=== PATIENT | male | born 2000 | race African-American/Black ===

== ENCOUNTER 2025-01-08 12:27 | Inpatient (IN) | payer OTHER ==
[~2025-01-08] VITALS: Ht 182.9 cm; Wt 73.7 kg
[2025-01-08] MEDS ORDERED: NALOXONE HCL 1 MG/ML 2 ML SYRINGE ONE (12:34)
[2025-01-08] MEDS ORDERED: ETOMIDATE 2 MG/ML 10 ML VIAL ONE (12:37)
[2025-01-08] MEDS ORDERED: ROCURONIUM BROMIDE 10 MG/ML 5 ML VIAL ONE (12:38)
[2025-01-08 12:45] VITALS: PULSE 45; RESP 20; O2SAT 100; O2SAT 99
[2025-01-08] MEDS: SODIUM CHLORIDE 0.9% 1,000 ML IV ONE ×2 (13:11→16:15)
[2025-01-08 13:21] LABS: PLATELET COUNT (AUTO) 170 K/uL (150-450); RED BLOOD CELL COUNT(AUTO) 3.59 MIL/uL (4.50-5.90); RED CELL DISTRIBUTION WIDTH 13.0 % (11.5-14.5); WHITE BLOOD COUNT (AUTO) 8.1 K/uL (4.5-11.0)
[2025-01-08 13:33] LABS: CALCIUM, TOTAL 7.7 mg/dL (8.8-10.5); CREATININE 0.83 mg/dL (0.60-1.30); GLOMERULAR FILTR. RATE CALC > 60 mL/min (>60); GLUCOSE,RANDOM 111 mg/dL (70-110); SODIUM SERUM 143 mmol/L (136-145); UREA NITROGEN, BLOOD 13 mg/dL (7-18)
[2025-01-08 13:38] LABS: TROPONIN I-HIGH SENSITIVITY 7 ng/L (<76)
[2025-01-08 13:41] LABS: APPEARANCE,URINE CLEAR (CLEAR); GLUCOSE, URINE (UA) NEGATIVE (NEGATIVE); LEUKOCYTE ESTERASE ,URINE NEGATIVE (NEGATIVE); NITRATE,URINE NEGATIVE (NEGATIVE); OCCULT BLOOD,URINE SMALL (NEGATIVE); PH,URINE DRUG SCREEN 5.5 (5.0-8.0); SPECIFIC GRAVITIY, URINE 1.030 (1.003-1.030)
[2025-01-08] MEDS: PROPOFOL 1000 MG/ISO-OSM 100 ML IV PRN (13:45)
[2025-01-08 13:46] LABS: ALCOHOL, URINE DRUG SCREEN NEGATIVE (NEGATIVE); AMPHET/METH SCREEN,URINE NEGATIVE (NEGATIVE); BARBITURATE SCREEN, URINE NEGATIVE (NEGATIVE); CANNABINOID SCREEN,URINE NEGATIVE (NEGATIVE); COCAINE SCREEN,URINE NEGATIVE (NEGATIVE); METHADONE SCREEN, URINE NEGATIVE (NEGATIVE)
[2025-01-08 13:50] LABS: ABG BASE EXCESS -4.6 mmol/L (-2.0-3.0); ABG CARBOXYHEMOGLOBIN 0.5 % (0.5-1.5); ABG HCO3 20.8 mmol/L (21.0-28.0); ABG METHEMOGLOBIN 1.0 % (0.0-1.5); ABG OXYGEN CONTENT 19.9 mL/dL (15.0-23.0); ABG OXYGEN SATURATION 99.0 % (94.0-98.0); ABG OXYHEMOGLOBIN 97.5 % (94.0-98.0); ABG PCO2 41 mmHg (32.0-48.0); ABG PH 7.334 (7.350-7.450); ABG TOTAL HEMOGLOBIN 13.3 G/dL (13.5-17.5); FRACTIONATED INSPIRED OXYGEN 100.0 % (21-100.0); SOURCE, BLOOD GAS ARTERIAL; TEMPERATURE, FAHRENHEIT, BG 95.6 FAHREN (96.0-98.6)
[2025-01-08 13:51] LABS: ABG A-A DIFF O2 91.8 mmHg (10-20.0); ALLEN TEST, BLOOD GAS Positive; O2 DEVICE,BLOOD GAS VENTILATOR (ROOM AIR); PATIENT RATE, BG 20.0 min.; PEEP,BG 5 cm H2O; PO2, ARTERIAL BG 584.6 mmHg (83.0-108.0); SET RATE, BG 20.0 min.; SITE, BLOOD GAS RT RADIAL; SPONTANEOUS VT, BG 433 ml; VT, ABG 400 ml
[2025-01-08 13:54] LABS: PHOSPHORUS 1.8 mg/dL (2.5-4.9)
[2025-01-08 13:57] LABS: RBC MORPHOLOGY COMMENT ABNORMAL RBC MORPH
[2025-01-08 13:58] LABS: LACTIC ACID 1.0 mmol/L (0.4-2.0)
[2025-01-08 14:06] LABS: ASPARTATE AMINOTRANSFERASE 64 U/L (15-37); TOTAL PROTEIN, SERUM 5.9 g/dL (6.4-8.2)
[2025-01-08 14:08] LABS: CREATINE KINASE, TOTAL ONLY 3280 U/L (39-308)
[2025-01-08 15:20] VITALS: PULSE 41; RESP 23; O2SAT 100
[2025-01-08] MEDS ORDERED: MAGNESIUM SULFATE 2 GM/WATER 50 ML IV PRN (15:45)
[2025-01-08] MEDS ORDERED: MAGNESIUM SULFATE 4 GM/WATER 100 ML IV PRN (15:45)
[2025-01-08] MEDS ORDERED: MAGNESIUM OXIDE 400 MG TABLET PO PRN (15:45)
[2025-01-08] MEDS ORDERED: BISACODYL 10 MG RECTAL RECTAL SUPPOSITORY PR PRN (15:45)
[2025-01-08] MEDS ORDERED: ONDANSETRON HCL 4 MG/2 ML VIAL IVP PRN (15:45)
[2025-01-08] MEDS: FentaNYL CIT 1000MCG/0.9% NACL 100 ML IV PRN (16:11)
[2025-01-08] MEDS: POTASSIUM PHOS,M-BASIC-D-BASIC 10 MEQ in DEXTROSE 5%-WATER 50 ML IV ONE (16:12)
[2025-01-08] MEDS: 1: MAGNESIUM SULFATE 2 GM, MVI, ADULT NO.1 WITH VIT K 10 ML, THIAMINE 100 MG, FOLIC ACID IV SCH (16:12)
[2025-01-08] MEDS: HEPARIN SODIUM,PORCINE 5,000 UNITS/ML VIAL SQ SCH (16:22)
[2025-01-08 16:55] LABS: COVID AG,FIA SOURCE NASAL SWAB
[2025-01-08] MEDS: MIDAZOLAM HCL 100 MG in SODIUM CHLORIDE 0.9% 180 ML IV PRN (16:55)
[2025-01-08 17:16] LABS: SARS-COV2 (COVID) ANTIGEN,FIA Negative (Negative)
[2025-01-08 19:15] VITALS: PULSE 63; RESP 18; RESP 20; O2SAT 97
[2025-01-08 21:30] VITALS: BP 104/62; PULSE 59; RESP 18; RESP 21; TEMP 95.3; O2SAT 98
[2025-01-08] MEDS: CHLORHEXIDINE GLUCONATE 2% TOWELETTE [2'S/6'S] TP SCH (21:38)
[2025-01-08 22:40] VITALS: PULSE 56; RESP 20; O2SAT 100
[2025-01-09] VITALS (12 sets, daily range): BP systolic 85–139; BP diastolic 44–74; PULSE 55–86; RESP 15–22; TEMP 95.4–100.5; O2SAT 97–100
[2025-01-09] MEDS ORDERED: PROPOFOL 1000 MG/ISO-OSM 100 ML ONE (02:37)
[2025-01-09] MEDS: PROPOFOL 1000 MG/ISO-OSM 100 ML IV PRN (02:39)
[2025-01-09 05:54] LABS: PLATELET COUNT (AUTO) 154 K/uL (150-450); RED BLOOD CELL COUNT(AUTO) 3.39 MIL/uL (4.50-5.90); RED CELL DISTRIBUTION WIDTH 13.1 % (11.5-14.5); WHITE BLOOD COUNT (AUTO) 6.9 K/uL (4.5-11.0)
[2025-01-09 06:04] LABS: CALCIUM, TOTAL 7.8 mg/dL (8.8-10.5); CREATININE 0.75 mg/dL (0.60-1.30); GLOMERULAR FILTR. RATE CALC > 60 mL/min (>60); GLUCOSE,RANDOM 78 mg/dL (70-110); SODIUM SERUM 141 mmol/L (136-145); UREA NITROGEN, BLOOD 7 mg/dL (7-18)
[2025-01-09] MEDS ORDERED: MIDAZOLAM HCL 100 MG in SODIUM CHLORIDE 0.9% 180 ML IV PRN (07:15)
[2025-01-09] MEDS: FentaNYL CIT 1000MCG/0.9% NACL 100 ML IV PRN (07:25)
[2025-01-09 08:52] LABS: RBC MORPHOLOGY COMMENT ABNORMAL RBC MORPH
[2025-01-09] MEDS: PANTOPRAZOLE SODIUM 40 MG/VIAL IVP SCH (08:53)
[2025-01-09] MEDS: ACETAMINOPHEN 325 MG TABLET PO PRN (12:09)
[2025-01-09 17:17] LABS: ABG A-A DIFF O2 80.2 mmHg (10-20.0); ABG BASE EXCESS -0.5 mmol/L (-2.0-3.0); ABG CARBOXYHEMOGLOBIN 0.6 % (0.5-1.5); ABG HCO3 24.0 mmol/L (21.0-28.0); ABG METHEMOGLOBIN 0.3 % (0.0-1.5); ABG OXYGEN CONTENT 18.7 mL/dL (15.0-23.0); ABG OXYGEN SATURATION 97.3 % (94.0-98.0); ABG OXYHEMOGLOBIN 96.4 % (94.0-98.0); ABG PCO2 45 mmHg (32.0-48.0); ABG PH 7.360 (7.350-7.450); ABG TOTAL HEMOGLOBIN 13.6 G/dL (13.5-17.5); ALLEN TEST, BLOOD GAS Positive; CPAP, BG 0 cm H2O; FRACTIONATED INSPIRED OXYGEN 40.0 % (21-100.0); O2 DEVICE,BLOOD GAS VENTILATOR (ROOM AIR); PATIENT RATE, BG 18.0 min.; PO2, ARTERIAL BG 152.0 mmHg (83.0-108.0); PRESSURE SUPPORT, BG 8 cm H2O; SITE, BLOOD GAS LFT RADIAL; SOURCE, BLOOD GAS ARTERIAL; SPONTANEOUS VT, BG 450 ml; TEMPERATURE, FAHRENHEIT, BG 100.4 FAHREN (96.0-98.6); VENT MODE, BG CPAP (ROOM AIR)
[2025-01-09] MEDS ORDERED: GADOTERATE MEGLUMINE 10 MMOL/20 ML VIAL IVP ONE (19:04)
[2025-01-09] MEDS ORDERED: SODIUM CHLORIDE 0.9% 100 ML ONE (20:19)
[2025-01-09] MEDS ORDERED: IOHEXOL 350 MG/ML 100 ML VIAL ONE (20:19)
[2025-01-09] MEDS ORDERED: 0.9% SODIUM CHLORIDE 10 ML SYRINGE IVP ONE (20:20)
[2025-01-10] VITALS (8 sets, daily range): BP systolic 107–135; BP diastolic 58–72; PULSE 59–99; RESP 14–20; TEMP 97.8–99.4; O2SAT 95–99
[2025-01-10] MEDS: ETHYL ALCOHOL 62% ANTISEPTIC NASAL SANITIZER 0.6 ML AMPUL NASAL SCH (01:06)
[2025-01-10 05:59] LABS: PLATELET COUNT (AUTO) 180 K/uL (150-450); RED BLOOD CELL COUNT(AUTO) 3.80 MIL/uL (4.50-5.90); RED CELL DISTRIBUTION WIDTH 12.6 % (11.5-14.5); WHITE BLOOD COUNT (AUTO) 8.6 K/uL (4.5-11.0)
[2025-01-10 06:11] LABS: CALCIUM, TOTAL 8.3 mg/dL (8.8-10.5); CREATININE 0.89 mg/dL (0.60-1.30); GLOMERULAR FILTR. RATE CALC > 60 mL/min (>60); GLUCOSE,RANDOM 87 mg/dL (70-110); UREA NITROGEN, BLOOD 7 mg/dL (7-18)
[2025-01-10 06:19] LABS: RBC MORPHOLOGY COMMENT ABNORMAL RBC MORPH
[2025-01-10 06:28] LABS: SODIUM SERUM 142 mmol/L (136-145)
[2025-01-10] MEDS ORDERED: SODIUM CHLORIDE 0.9% 1,000 ML ONE (07:57)
[2025-01-11 04:26] VITALS: BP 106/57; PULSE 64; RESP 18; TEMP 98.7; O2SAT 96
[2025-01-11 06:27] LABS: PLATELET COUNT (AUTO) 194 K/uL (150-450); RED BLOOD CELL COUNT(AUTO) 3.96 MIL/uL (4.50-5.90); RED CELL DISTRIBUTION WIDTH 12.7 % (11.5-14.5); WHITE BLOOD COUNT (AUTO) 5.7 K/uL (4.5-11.0)
[2025-01-11 06:46] LABS: RBC MORPHOLOGY COMMENT ABNORMAL RBC MORPH
[2025-01-11 08:05] VITALS: BP 129/71; PULSE 66; RESP 19; TEMP 98; O2SAT 100
[2025-01-11 11:28] VITALS: BP 119/74; PULSE 68; RESP 18; TEMP 98.2; O2SAT 99
== END 2025-01-11 13:15 | disposition home or self-care (01) | DRG 917 ==
LOC: EMS 12:32 → EDH 15:38 → EDBD 15:38 → ICU 21:08 → 5S 01-10 11:35
PROVIDERS: ADMIT Internal Medicine; ATTEND Internal Medicine
PROC: 5A1945Z Respiratory Ventilation, 24-96 Consecutive Hours (ICD-10-PCS; principal; 2025-01-08)
PROC: 0BH17EZ Insertion of Endotracheal Airway into Trachea, Via Natural or Artificial Opening (ICD-10-PCS; 2025-01-08)
DX: T41.291A Poisoning by other general anesthetics, accidental (unintentional), initial encounter (principal); G92.9 Unspecified toxic encephalopathy; J96.00 Acute respiratory failure, unspecified whether with hypoxia or hypercapnia; M62.82 Rhabdomyolysis; M48.54XA Collapsed vertebra, not elsewhere classified, thoracic region, initial encounter for fracture; Z99.11 Dependence on respirator [ventilator] status; D53.9 Nutritional anemia, unspecified; Z20.822 Contact with and (suspected) exposure to COVID-19; F39 Unspecified mood [affective] disorder; Y92.89 Other specified places as the place of occurrence of the external cause
CPT/HCPCS: 51702; 70450; 70551; 71045; 72125; 72156; 72157; 74177; 80048; 80076; 80307; 81001; 82040; 82140; 82550; 82805; 83605; 83735; 84100; 84443; 84484; 85025; 85610; 85730; 87040; 87081; 93005; 94002; 94003; 96361; 96365; 96366; 99291; G0480; G0481; J1644; J2250; J2312; J2470; J2704; J3010; J3411; J3475; J3490; J7030; J7050; J7060; 36415-L1; 36415-TC